=== PATIENT | male | born 1940 | race Caucasian/White ===

== ENCOUNTER 2022-02-26 11:24 | Emergency (ER) | payer MEDICARE, SELFPAY ==
[2022-02-26 11:37] VITALS: BP 152/66; PULSE 88; RESP 16; TEMP 37.1; O2SAT 98
--- NOTE | 2022-02-26 11:58 | ED.SKABFB ---
HPI - Skin/Abscess/Foreign Bdy General Chief complaint: Skin/Abscess/Foreign Body Stated complaint: rash Time Seen by Provider: 02/26/22 11:45 Source: patient Mode of arrival: ambulatory Limitations: no limitations History of Present Illness HPI narrative: Mr. Rojas is a 81-year-old male patient presenting to the clinic today with complaints of possible shingles to the right side of his abdomen/back. He reports that these symptoms began on Wednesday. states the rash was mildly painful prior to the vesicules popping up. He denies any pain over the area currently. He denies any fever chills. Related Data Home Medications Medication Instructions Recorded Confirmed finasteride 5 mg tablet mg 02/26/22 levofloxacin 500 mg tablet mg 02/26/22 levothyroxine 100 mcg tablet mcg 02/26/22 (Synthroid) lisinopril 20 tablet 02/26/22 mg-hydrochlorothiazide 12.5 mg tablet simvastatin 20 mg tablet mg 02/26/22 Allergies Allergy/AdvReac Type Severity Reaction Status Date / Time No Known Allergies Allergy Verified 02/26/22 11:44 Review of Systems Review of Systems: Pertinent positives per HPI. Patient denies any fever, chills, headache, visual changes, dizziness, cough, runny nose, sore throat, shortness of breath, chest pain, palpitations, nausea, vomiting, diarrhea, constipation, abdominal pain, or any urinary issues. PMFSH Comments At the time of my signature, I reviewed and agree with the nursing past medical, surgical, social, and family history. There is no relevant family history pertinent to the patient complaint. Exam Narrative: General: Well-developed, well nourished, in no apparent distress Head: Normocephalic, atraumatic. Cardio: Regular rate and rhythm, s1 and s2 normal, no murmur appreciated. Resp: Clear to auscultation bilaterally, no rhonchi, rales, wheezing or rubs. Integumentary: Vineyard, warm, and dry, intact without lesion, Red raised erythemic base with vesicular lesions to the right lateral abdomen and right side of his back Course Course Emergency Course: Portions of this record may have been created with voice recognition software. Level of Care: Express Care Visit Vital Signs Vital signs: Vital Signs Temperature 37.1 C 02/26/22 11:37 Pulse Rate 88 02/26/22 11:37 Respiratory Rate 16 02/26/22 11:37 Blood Pressure 152/66 H 02/26/22 11:37 Pulse Oximetry 98 02/26/22 11:37 Oxygen Delivery Room Air 02/26/22 11:37 Temperature 37.1 C 02/26/22 11:37 Pulse Rate 88 02/26/22 11:37 Respiratory Rate 16 02/26/22 11:37 Blood Pressure 152/66 H 02/26/22 11:37 Pulse Oximetry 98 02/26/22 11:37 Oxygen Delivery Room Air 02/26/22 11:37 Vital signs reviewed MDM - Skin/Abscess/Foreign Bdy MDM Narrative Medical decision making narrative: At the time of visit patient is resting comfortably on the exam table. I suspect patient has herpes zoster. Prescription for acyclovir and prednisone was sent to the pharmacy. Supportive measures were discussed with the patient he voiced understanding of discharge instructions and agrees to treatment plan. Differential Diagnosis Differential diagnosis: Likely abscess of skin or subcutaneous tissue, herpes zoster, cellulitis, eczema and contact dermatitis Discharge Plan Discharge Clinical Impression: Herpes zoster Patient Disposition: Home, Self-Care Condition: Stable Instructions: Antibiotic Form, Shingles (ED) Additional Instructions: Keep rash covered as long as there is vesicular lesions- shingles will no longer be contagious when the area dries out and crust over Do not share towels or clothing while you have this rash Discussed getting your shingles vaccine from your PCP May take Tylenol/ Motrin as needed for pain Take prednisone and Valtrex as prescribed Follow-up with your PCP in 3-5 days if symptoms persist or sooner if they worsen Prescriptions: New valacyclovir [Valtrex] 1
== END 2022-02-26 12:05 | disposition home or self-care (01) ==
PROVIDERS: Emergency Provider Nurse Practitioner Family; PCP Internal Medicine
DX: B02.9 Zoster without complications (principal); E78.00 Pure hypercholesterolemia, unspecified; I10 Essential (primary) hypertension; E03.9 Hypothyroidism, unspecified
CPT/HCPCS: 99213; G0463